=== PATIENT | female | born 1940 | race African-American/Black ===

== ENCOUNTER 2019-02-14 02:37 | Emergency (ER) | payer BC, OTHER ==
[~2019-02-14] VITALS: Ht 170.2 cm; Wt 78.0 kg
[2019-02-14] MEDS ORDERED: SODIUM CHLORIDE 0.9% 1,000 ML IV ONE (03:50)
[2019-02-14 04:17] LABS: CLARITY URINE CLEAR (CLEAR); COLOR URINE YELLOW (YELLOW); KETONES URINE NEGATIVE (NEGATIVE); LEUKOCYTE ESTERASE URINE TRACE (NEGATIVE); NITRITE URINE NEGATIVE (NEGATIVE); OCCULT BLOOD URINE TRACE (NEGATIVE); PH URINE 5.5 (4.5-8.0); PROTEIN URINE NEGATIVE (NEGATIVE); SPECIFIC GRAVITY URINE 1.007 (1.005-1.030); UROBILINOGEN URINE 0.2 E.U./dL (0.2-1.0)
[2019-02-14 04:28] LABS: BASOPHILS % 0.8 % (0.0-2.0); EOSINOPHILS % 1.2 % (0.0-5.0); HEMATOCRIT. 41.8 % (36.0-48.0); HEMOGLOBIN. 13.6 g/dL (12.0-16.0); LYMPHOCYTES % 35.9 % (20.0-50.0); MEAN CORPUSCULAR HEMOGLOBIN 29.3 pg (28.0-32.0); MEAN CORPUSCULAR VOLUME 89.9 fL (81.0-99.0); MEAN PLATELET VOLUME 7.1 fl (7.4-10.4); MONOCYTES % 8.6 % (2.0-8.0); NEUTROPHILS % 53.5 % (40.0-76.0); PLATELET 330 x1000/uL (130-400); RED BLOOD CELL COUNT 4.65 mill/uL (4.2-5.4)
[2019-02-14 04:34] LABS: CHLORIDE 110 mEq/L (98-107)
[2019-02-14 05:10] VITALS: BP 127/61
[2019-02-14] MEDS ORDERED: IOHEXOL-300 100 ML BOTTLE ONE (06:41)
== END 2019-02-14 06:35 | disposition home or self-care (01) ==
LOC: ER 02:37
DX: R10.0 Acute abdomen (principal); R39.15 Urgency of urination; R03.0 Elevated blood-pressure reading, without diagnosis of hypertension
CPT/HCPCS: 36415; 71045; 74177; 80053; 81003; 83605; 83690; 85025; 99284; J7030; Q9967

== ENCOUNTER 2022-02-20 15:37 | Inpatient (IN) | payer OTHER ==
[~2022-02-20] VITALS: Ht 170.2 cm; Wt 63.5 kg
[2022-02-20] MEDS ORDERED: SODIUM CHLORIDE 0.9% 1,000 ML IV ONE (16:00)
[2022-02-20 18:11] LABS: BASOPHILS % 0.3 % (0.0-2.0); EOSINOPHILS % 0.7 % (0.0-5.0); HEMATOCRIT. 35.4 % (36.0-48.0); HEMOGLOBIN. 11.6 g/dL (12.0-16.0); LYMPHOCYTES % 17.2 % (20.0-50.0); MEAN CORPUSCULAR HEMOGLOBIN 29.7 pg (28.0-32.0); MEAN CORPUSCULAR VOLUME 90.5 fL (81.0-99.0); MEAN PLATELET VOLUME 7.8 fl (7.4-10.4); MONOCYTES % 7.4 % (2.0-8.0); NEUTROPHILS % 74.4 % (40.0-76.0); PLATELET 411 x1000/uL (130-400); RED BLOOD CELL COUNT 3.91 mill/uL (4.2-5.4); RED CELL DISTRIBUTION WIDTH 14.1 % (11.6-14.6)
[2022-02-20 18:16] LABS: CHLORIDE 104 mEq/L (98-107)
[2022-02-20 18:19] LABS: PARTIAL THROMBOPLASTIN TIME 26.3 sec (23.4-31.0); PROTHROMBIN TIME 10.7 sec (9.6-11.0)
[2022-02-20] MEDS ORDERED: ASPIRIN 81MG TABLET PO ONE (18:45)
[2022-02-20 21:30] VITALS: BP 115/71
[2022-02-21] MEDS ORDERED: ACETAMINOPHEN 650MG/20.3ML UDC PO PRN
[2022-02-21 04:00] VITALS: BP 123/53
[2022-02-21 07:09] LABS: HEMATOCRIT 33.8 % (36.0-48.0); HEMOGLOBIN 11.2 g/dL (12.0-16.0); MEAN CORPUSCULAR HEMOGLOBIN 29.8 pg (28.0-32.0); MEAN CORPUSCULAR VOLUME 89.9 fL (81.0-99.0); PLATELET 405 x1000/uL (130-400); RED BLOOD CELL COUNT 3.77 mill/uL (4.2-5.4); RED CELL DISTRIBUTION WIDTH 13.9 % (11.6-14.6)
[2022-02-21 08:00] VITALS: BP 121/59
[2022-02-21] MEDS: HEPARIN 5000 UNITS/ML VIAL SUBCUT SCH ×2 (09:35→21:23)
[2022-02-21] MEDS ORDERED: ONDANSETRON HCL 4MG/2ML INJ IV PRN (10:15)
[2022-02-21] MEDS ORDERED: ASPIRIN 81MG EC TABLET PO NR (11:45)
[2022-02-21 12:00] VITALS: BP 98/53
[2022-02-21 16:00] VITALS: BP 108/62
[2022-02-21] MEDS ORDERED: ASPI-1497 PO (18:24)
[2022-02-21] MEDS ORDERED: PSYL3.4P5 PO (18:24)
[2022-02-21] MEDS ORDERED: VALS160T28 PO (18:24)
[2022-02-21] MEDS ORDERED: PRAV20TA57 PO (18:24)
[2022-02-21] MEDS ORDERED: COFF1CAP3 (18:24)
[2022-02-21] MEDS ORDERED: LEVO25TA7 PO (18:24)
[2022-02-21 20:00] VITALS: BP 102/57
[2022-02-22] VITALS: BP 113/55
[2022-02-22 04:00] VITALS: BP 101/81
[2022-02-22 06:36] LABS: BASOPHILS % 0.6 % (0.0-2.0); EOSINOPHILS % 3.6 % (0.0-5.0); HEMATOCRIT. 33.7 % (36.0-48.0); HEMOGLOBIN. 11.2 g/dL (12.0-16.0); LYMPHOCYTES % 51.8 % (20.0-50.0); MEAN CORPUSCULAR HEMOGLOBIN 29.7 pg (28.0-32.0); MEAN CORPUSCULAR VOLUME 89.1 fL (81.0-99.0); MEAN PLATELET VOLUME 8.2 fl (7.4-10.4); MONOCYTES % 10.6 % (2.0-8.0); NEUTROPHILS % 33.4 % (40.0-76.0); PLATELET 393 x1000/uL (130-400); RED BLOOD CELL COUNT 3.78 mill/uL (4.2-5.4); RED CELL DISTRIBUTION WIDTH 13.9 % (11.6-14.6)
[2022-02-22 06:42] VITALS: BP_SYST 112; BP_SYST 115; BP_SYST 117; BP_DIAS 63; BP_DIAS 65; BP_DIAS 67
[2022-02-22 07:15] LABS: CHLORIDE 110 mEq/L (98-107)
[2022-02-22 08:00] VITALS: BP 126/54
[2022-02-22] MEDS ORDERED: ASPIRIN 81MG EC TABLET PO SCH ×2 (09:00)
[2022-02-22] MEDS ORDERED: PSYLLIUM SEED PACKET PO SCH (09:00)
[2022-02-22] MEDS ORDERED: LEVOTHYROXINE SODIUM 25MCG TABLET PO SCH (09:00)
[2022-02-22] MEDS: MIDODRINE HCL 2.5MG TABLET PO SCH ×2 (09:15→13:00)
[2022-02-22 09:17] LABS: CLARITY URINE CLEAR (CLEAR); COLOR URINE YELLOW (YELLOW); KETONES URINE NEGATIVE (NEGATIVE); LEUKOCYTE ESTERASE URINE 2+ (NEGATIVE); NITRITE URINE NEGATIVE (NEGATIVE); OCCULT BLOOD URINE TRACE (NEGATIVE); PROTEIN URINE NEGATIVE (NEGATIVE); SPECIFIC GRAVITY URINE 1.009 (1.005-1.030); UROBILINOGEN URINE 0.2 E.U./dL (0.2-1.0)
[2022-02-22] MEDS ORDERED: LEVO-65 MT (09:34)
[2022-02-22] MEDS: HEPARIN 5000 UNITS/ML VIAL SUBCUT SCH (10:00)
[2022-02-22 12:00] VITALS: BP 100/60
[2022-02-22] MEDS ORDERED: CEFTRIAXONE 1,000 MG in DEXTROSE 5% WATER 50 ML IV SCH (12:00)
[2022-02-22 14:04] VITALS: BP 100/60
== END 2022-02-22 15:55 | disposition home or self-care (01) | DRG 74 ==
LOC: ER 15:45 → 8WST 18:46 → EDBEDREQTM 18:49 → EDBEDREQ 18:49
PROVIDERS: ADMIT Internal Medicine; ATTEND Internal Medicine
DX: G90.8 Other disorders of autonomic nervous system (principal); N39.0 Urinary tract infection, site not specified; I10 Essential (primary) hypertension; E87.5 Hyperkalemia; Z88.2 Allergy status to sulfonamides; Z90.49 Acquired absence of other specified parts of digestive tract; Z79.82 Long term (current) use of aspirin; Z90.710 Acquired absence of both cervix and uterus
CPT/HCPCS: 36415; 71045; 80048; 80053; 81003; 83735; 83880; 84484; 85025; 85027; 93005; 93306; 99285; C1893; J0696; J1644; J7030; J7060